=== PATIENT | female | born 1945 | race Caucasian/White ===

== ENCOUNTER 2022-11-16 07:42 | Day surgery (SDC) | payer MEDICARE, SELFPAY ==
[2022-11-16] VITALS (10 sets, daily range): BP systolic 133–155; BP diastolic 62–86; PULSE 67–83; RESP 12–18; TEMP 36.1–36.8; O2SAT 97–100; BMI 20.9
[2022-11-16 08:15] LABS: Chloride 108 mmol/L (98-107)
[2022-11-16 08:16] LABS: Basophils # 0.1 K/mm3 (0-0.2); Basophils % 0.8 % (0.1-2.0); Eosinophils # 0.3 K/mm3 (0.0-0.4); Eosinophils % 4.5 % (0.1-12.0); Hematocrit 43.5 % (37.0-47.0); Hemoglobin 13.6 g/dL (12.2-16.2); Lymphocytes # 1.8 K/mm3 (0.7-4.5); Lymphocytes % 29.4 % (10-50); Mean Corpuscular HGB Conc 31.3 g/dL (31.8-35.4); Mean Corpuscular Hemoglobin 30.9 pg (27.0-31.2); Mean Corpuscular Volume 98.7 fl (81-99); Monocytes # 0.4 K/mm3 (0.1-1.0); Monocytes % 7.2 % (1.7-9.3); Neutrophils # 3.5 K/mm3 (1.8-7.8); Neutrophils % 58.1 % (37.0-80.0); Platelet Count 216 K/mm3 (142-424); Potassium 4.1 mmoL/L (3.5-5.1); Red Blood Count 4.41 M/mm3 (4.20-5.40); Red Cell Distribution Width 13.7 % (11.5-17.5); Sodium 141 mmol/L (136-145)
[2022-11-16 08:19] LABS: Anion Gap 8.1 mEq/L (5-15); Blood Urea Nitrogen 23 mg/dl (7-17); Calcium 9.5 mg/dl (8.4-10.2); Carbon Dioxide 29 mmol/L (22.0-30.0); Creatinine Clearance Estimated 32 mL/min (50-200); Estimated Glomerular Filt Rate 40 ml/min (>60); GFR (African American) 48 ML/MIN (>60); Glucose 85 mg/dl (74-100)
--- NOTE | 2022-11-16 09:28 | P.OP_ITS ---
Date of procedure: 11/16/22 Pre-op Diagnosis:: Sebaceous cyst on the back Post-op Diagnosis:: Same Procedure performed:: Excision of 3 cm sebaceous cyst from the back with intermediate complexity closure Surgeon:: Benny Paez MD SEPARATIONS SCIENTIST:: Other Anesthesia: LMA Estimated blood loss (mL): 5 Operative findings:: Consistent with sebaceous cyst, noninfected Operative note:: Consent was obtained and patient was taken to the operating room. She was given preoperative intravenous antibiotic. In the operating room she was placed in a supine position. General anesthesia was induced via LMA. She was repositioned in right lateral decubitus position. The area was prepped and draped. Skin was marked with a skin marker for planned elliptical incision incorporating skin punctum. Local anesthetic was infiltrated skin incision was made sharply. Dissection was carried down to the cyst capsule. Overlying skin ellipse with the underlying cyst was excised using sharp and blunt dissection. There was some disruption of the cyst capsule with minimal spillage of caseous contents. Wound was inspected and any potential residual cyst capsule was excised. Hemostasis was achieved with electrocautery. Wound was irrigated. Additional local anesthetic was infiltrated deeply. Subdermal tissues were reapproximated with interrupted 3-0 Vicryl. Skin was closed with interrupted 4-0 nylon. Condition: stable Disposition: PACU Complications:: None immediate
--- NOTE | 2022-11-16 09:47 | EXP.ANES.I ---
[facility] Anesthesia Record Part I Anesthesia Record I Intake, IV Amount: 600 Estimated blood loss (mL): 2 Urine output (mL): 0 Blood Products used (#): none Blood Pressure: 155/80 SaO2: 100 Pulse Rate: 81 Respiratory Rate: 12 Temperature: 98.1 F Patient is:: Drowsy and Stable Stable to PACU at:: 09:35
--- NOTE | 2022-11-16 13:47 | P.PNANES_ITS ---
[facility] Anesthesia Record Part II Anesthesia Record Part II Discharge Time: 10:05 Destination: Surgical Day Care (OP Surgery) PACU nurse assessment reviewed?: Yes Patient Condition:: Good Anesthesia Complications:: None Swallowing reflex intact?: Yes Cyanosis?: No Blood Pressure: 153/82 Pulse Rate: 80 Temperature: 97.1 F Mental Status: Alert & Oriented Pain level:: 0 Nausea and/or vomitting:: None Intake, IV Amount: 0
== END 2022-11-16 10:41 | disposition home or self-care (01) ==
PROVIDERS: PCP Family Medicine; Visit Provider Surgery
DX: L72.0 Epidermal cyst (principal); Z79.899 Other long term (current) drug therapy
CPT/HCPCS: 11404; 12032; 80048; 85025; 88304; 96374; J2405